=== PATIENT | female | born 1985 | race African-American/Black ===

== ENCOUNTER 2020-02-05 11:09 | Emergency (ER) | payer BC, SELFPAY ==
[2020-02-05] VITALS (9 sets, daily range): BP systolic 129–177; BP diastolic 30–119; PULSE 70–84; RESP 14–20; TEMP 36.4; O2SAT 98–100
--- NOTE | ~2020-02-05 | CT_ITS ---
EXAMINATION: CTA chest EXAM DATE: 02/05/2020 14:52 INDICATION: Chest pain radiating to back. Hypertensive. TECHNIQUE: Spiral CTA of the chest (aorta) was performed with 100 cc Omnipaque 350 intravenous contr ast injection. Images were acquired during the pulmonary arterial phase. Coronal maximum intensity projection 3D-reconstructions were created by the technologist on dedicated workstation. Axial, cor onal and sagittal reformatted images were reviewed. The dose-length product (DLP) for this examinati on was 586.43 mGy-cm. The exposure was tailored according to patient size (auto mA exposure control ), and iterative reconstruction (ASIR) was used as additional dose reduction technique. There is no prior study for comparison. FINDINGS: No central pulmonary emboli. No thoracic aortic dissection or aneurysm. The lungs are cl ear. There are no pleural or pericardial effusions. Tracheobronchial tree is patent. There is n o mediastinal, hilar or axillary lymphadenopathy. There is no pneumothorax. Heart normal in size. No evidence of coronary arterial calcification. Upper abdomen is unremarkable. There is thoraci c spondylosis without osteoblastic or osteolytic lesions identified. IMPRESSION: 1. No acute cardiopulmonary findings. Reviewed, dictated and finalized at location B.
--- NOTE | ~2020-02-05 | XR_ITS ---
EXAMINATION: XR chest 2V EXAM DATE: 02/05/2020 11:47 INDICATION: Left-sided chest pain when breathing. TECHNIQUE: Frontal and lateral projections of the chest obtained and reviewed. There is no prior estephania dy for comparison. FINDINGS: The lungs are clear. There are no pleural effusions. The cardiomediastinal silhouette is within normal limits. There is no pneumothorax suspected. The bones and soft tissues are unremarkab le. IMPRESSION: Normal chest x-ray exam. Reviewed, dictated and finalized at location B. IMPRESSION: Normal chest x-ray exam.
--- NOTE | 2020-02-05 11:13 | ECG_ITS ---
Measurements Intervals [place] Rate: 80 P: 39 DE: 136 QRS: -23 QRSD: 130 T: 13 QT: 391 QTc: 453 Interpretive Statements SINUS RHYTHM RIGHT BUNDLE BRANCH BLOCK VOLTAGE CRITERIA FOR LVH MINIMAL Q WAVES- LATERAL LEADS BASELINE ARTIFACT- I, II, III, AVR, AVF, V4-V6 ABNORMAL ECG Electronically Signed On 02-05-2020 11:24:05 CDT by Jose M Drummond D.O.
--- NOTE | 2020-02-05 11:20 | ED.CHESTPAIN ---
HPI - Chest Pain General Chief Complaint: Chest Pain Stated Complaint: CP Time Seen by Provider: 02/05/20 11:20 Source: patient Mode of arrival: ambulatory Limitations: no limitations History of Present Illness HPI narrative: A 34 y/o female presents to the ED with c/o left sided CP that radiates into her left arm and back. Pt states that the sharp CP started yesterday when she was driving home from work. The CP has been constant and is aggravated with deep breaths. Pt rates the CP at 7/10 in severity and notes that today her left arm has been intermittently throbbing. Pt reports SOB and nausea, but denies rhinorrhea, cough, bilateral leg edema, bilateral calf tenderness, and vomiting. She took Tylenol for the CP with no relief. Pt has a PMHx of HTN and takes medication for her HTN daily. She is a lifetime nonsmoker. complaint: chest pain (Left sided) Onset (ago): day(s) (1) Timing of current episode: constant Onset: during rest Pain location: left chest Pain radiation: left arm and back Pain scale (0-10): 7 Quality: sharp Exacerbating factors: inspiration Associated symptoms: nausea and dyspnea Treatment prior to arrival: other (Tylenol) Related Data Home Medications Medication Instructions Recorded Confirmed ergocalciferol (vitamin D2) 02/05/20 ferrous sulfate 02/05/20 lisinopril-hydrochlorothiazide tablet 02/05/20 sumatriptan succinate mg PO 02/05/20 Allergies Allergy/AdvReac Type Severity Reaction Status Date / Time No Known Allergies Allergy Verified 02/05/20 11:15 Review of Systems Review of Systems: All systems reviewed & are unremarkable except as noted in HPI and below ENT: Denies nasal discharge Cardiovascular: Cardiovascular: Reports chest pain (Left sided that radiates to left arm and back) and Denies leg edema (Bilateral) Respiratory: Respiratory: Denies cough and Reports dyspnea Gastrointestinal: Gastrointestinal: Reports nausea and Denies vomiting Musculoskeletal: Musculoskeletal: Denies arthralgias (Bilateral calf) [facility] Past Medical History Medical History (Updated 02/05/20 @ 15:32 by Rylee Pedroza MD) HTN (hypertension) Surgical History Surgical History (Updated 02/05/20 @ 11:32 by Amber Jackson) No pertinent past surgical history Social History Social History (Updated 02/05/20 @ 11:32 by Amber Hernandez Smoking status: Never smoker Gender identity (if verbalized by the patient): Female Exam Narrative: Exam Narrative: GENERAL: Well-appearing, well-nourished, and in no acute distress. HEAD: Normocephalic, atraumatic EYES: PERRLA and EOMI, conjunctiva clear without discharge THROAT:Mucous membranes moist, Oropharynx normal without erythema, exudate, peritonsillar swelling or fluctuance NECK: Supple, without lymphadenopathy or mass RESPIRATORY: No respiratory distress, Airway patent, Respirations non-labored, Clear to auscultation without rales, rhonchi or wheeze HEART: Regular rate and rhythm. No murmur heard. Normal peripheral pulses. ABDOMEN: Soft, nontender, nondistended, normal active bowel sounds. No masses. No rebound or guarding, No organomegaly. EXTREMITIES: No edema, normal strength with full range of motion. SKIN: Warm, dry, normal color without rash NEURO: Alert and oriented x3. CN 2-12 grossly intact. No focal deficits. PSYCH: Normal mood and affect. Course Course Emergency Course: Patient presented with left chest pain and left back pain. She was extremely hypertensive so CTa performed. CTA normal . Patient is low risk for heart score so she understands she will need to follow up . Vital Signs Vital signs: Vital Signs Temperature 97.6 F 02/05/20 11:13 Pulse Rate 72 02/05/20 11:13 Respiratory Rate 14 02/05/20 11:13 Blood Pressure 177/119 H 02/05/20 11:13 Pulse Oximetry 100 02/05/20 11:13 Temperature 97.6 F 02/05/20 14:34 Pulse Rate 70 02/05/20 14:14 Respiratory Rate 20 02/05/20 14:14 Blood Pressure 14
[2020-02-05 11:40] LABS: Basophils Percent Auto 0.5 % (0.2-1.2); Eosinophils Absolute Auto 0.1 K/mm3 (0-0.3); Eosinophils Percent Auto 1.2 % (0-4.4); Hematocrit 39.3 % (37.0-47.0); Hemoglobin 12.4 g/dL (12.0-15.0); Immature Granulocyte Absolute 0.01 K/mm3 (0.00-0.031); Immature Granulocyte Percent A 0.1 % (0-0.5); Mean Corpuscular HGB Conc 31.6 g/dl (32-36); Mean Corpuscular Hemoglobin 28.9 pg (26-34); Mean Corpuscular Volume 91.6 fl (80-100); Monocytes Absolute Auto 0.4 K/mm3 (0.1-0.6); Monocytes Percent Auto 5.1 % (2.6-8.5); Neutrophils Absolute Auto 4.9 K/mm3 (1.3-6.7); Neutrophils Percent Auto 57.1 % (45.5-73.1); Platelet Count Result 332 k/mm3 (150-375); Red Blood Count 4.29 M/mm3 (4.2-5.4); Red Cell Distribution Width 14.6 % (11.5-14.5); White Blood Count 8.6 K/mm3 (4.5-10.0)
[2020-02-05 11:49] LABS: Blood Urea Nitrogen 10 mg/dL (7-17); Calcium 9.3 mg/dL (8.4-10.2); Carbon Dioxide 25 mmol/L (22-30); Chloride 101 mmol/L (98-107); Estimated CRCL calculation 101 ml/min; Estimated Glomerular Filt Rate > 60; Glucose 94 mg/dL (65-105); Potassium 3.4 mmol/L (3.4-5.0); Sodium 137 mmol/L (137-145)
[2020-02-05] MEDS: ASPIRIN 81 MG CHEWABLE TABLET 324 MG PO (11:50)
[2020-02-05 12:01] LABS: Troponin I < 0.012 ng/mL (0.000-0.034)
[2020-02-05] MEDS: NITROGLYCERIN SL 0.4 MG TABLET SUBLINGUAL (12:04)
--- NOTE | 2020-02-05 12:12 | PC.NURSE ---
Second nitro given at this time. No change in pain level following first nitro administration
--- NOTE | 2020-02-05 12:19 | PC.NURSE ---
Third nitro given at this time.
--- NOTE | 2020-02-05 12:20 | PC.NURSE ---
3rd nitro given at this time. No change in severity of pain however patient reports pain is more intermittent at this time.
[2020-02-05 12:36] LABS: D Dimer 0.46 ug/mL (<0.48); Partial Thromboplastin Time 31.6 SECONDS (22.3-36.8); Prothrombin Time 13.1 Seconds (11.1-14.7)
[2020-02-05] MEDS: CYCLOBENZAPRINE HCL 5 MG TABLET PO (13:50)
[2020-02-05] MEDS: KETOROLAC 30 MG/ML VIAL (*BKC) IV PUSH (13:51)
[2020-02-05 14:40] LABS: Troponin I < 0.012 ng/mL (0.000-0.034)
== END 2020-02-05 15:46 | disposition home or self-care (01) ==
PROVIDERS: Emergency Provider General Practice
DX: R07.9 Chest pain, unspecified (principal); I10 Essential (primary) hypertension; I45.10 Unspecified right bundle-branch block; R94.31 Abnormal electrocardiogram [ECG] [EKG]
CPT/HCPCS: 36415; 71046; 71275; 80048; 81025; 84484; 85025; 85380; 85610; 85730; 93005; 96374; 99284; A9270; J1885; Q9967

== ENCOUNTER 2021-04-06 12:46 | Emergency (ER) | payer BC, SELFPAY ==
--- NOTE | 2021-04-06 12:48 | ECG_ITS ---
Measurements Intervals [place] Rate: 65 P: 35 NC: 150 QRS: -14 QRSD: 137 T: 2 QT: 440 QTc: 457 Interpretive Statements SINUS RHYTHM RIGHT BUNDLE BRANCH BLOCK VOLTAGE CRITERIA FOR LVH MINIMAL Q WAVES- HIGH LATERAL LEADS BASELINE ARTIFACT- V6 ABNORMAL ECG Electronically Signed On 04-06-2021 13:14:20 CDT by Jose M Drummond D.O.
[2021-04-06 12:49] VITALS: BP 149/93; PULSE 68; RESP 20; TEMP 36.4; O2SAT 100
[2021-04-06 13:29] LABS: Anion Gap 6 mmol/L (8-16); Blood Urea Nitrogen 13 mg/dL (7-17); Calcium 8.8 mg/dL (8.4-10.2); Carbon Dioxide 24 mmol/L (22-30); Chloride 106 mmol/L (98-107); Estimated CRCL calculation 114 ml/min; Estimated Glomerular Filt Rate > 60; Glucose 90 mg/dL (65-105); Potassium 3.2 mmol/L (3.4-5.0); Sodium 136 mmol/L (137-145)
--- NOTE | 2021-04-06 14:13 | ED.DIZZY ---
HPI - Dizziness General Chief Complaint: Dizziness Stated Complaint: dizzy Time Seen by Provider: 04/06/21 14:12 History of Present Illness HPI Narrative: 35 yo female w/ h/o htn presents to the ED c/o dizziness. She was waiting in line at [employer] when she suddenly felt warm and flushed. She then became very light headed and had to sit down. She also reports mild nausea during this event. On my evaluation she says that her symptoms have mostly passed, she is just feeling very tired. She reports being in her usual stated of health prior to this event. She did have a recent schedule change at work and may be having trouble adjusting. Related Data Home Medications Medication Instructions Recorded Confirmed ergocalciferol (vitamin D2) 02/05/20 ferrous sulfate 02/05/20 lisinopril-hydrochlorothiazide tablet 02/05/20 sumatriptan succinate mg PO 02/05/20 Allergies Allergy/AdvReac Type Severity Reaction Status Date / Time No Known Allergies Allergy Verified 02/05/20 11:15 Review of Systems Review of Systems: All systems reviewed & are unremarkable except as noted in HPI and below Constitutional: Constitutional: Denies fever(s) Eyes: Eyes: Reports no additional eye complaints Cardiovascular: Cardiovascular: Denies chest pain Respiratory: Respiratory: Denies dyspnea Gastrointestinal: Gastrointestinal: Denies abdominal pain, Denies diarrhea, Reports nausea and Denies vomiting Genitourinary: Genitourinary: Denies hematuria and Denies dysuria Musculoskeletal: Musculoskeletal: Denies back pain Neurologic: Reports dizziness, Denies syncope and Reports numbness PMFSH Past Medical History Medical History (Updated 04/06/21 @ 15:43 by Jake Mansfield MD) HTN (hypertension) Surgical History Surgical History (Updated 02/05/20 @ 11:32 by Amber Jackson) No pertinent past surgical history Social History Social History (Updated 02/05/20 @ 11:32 by Amber Jackson) Smoking status: Never smoker Gender identity (if verbalized by the patient): Female Exam Const: General: healthy appearing, no acute distress and alert Orientation/consciousness: patient oriented x3 HENMT: Head: normal to inspection Neck: Neck: normal visual inspection Resp: Effort & Inspection: normal respiratory effort Auscultation: clear to auscultation bilaterally, no rales, no rhonchi and no wheezes Cardio: Jugular venous distension: no JVD Rate: regular rate Rhythm: regular rhythm Heart sounds: no murmurs GI: Inspection: non-distended GI Palp: Yes Soft to palpation and No Tenderness to palpation present (GI) Skin: General skin exam: normal color Neuro: General: patient oriented x3, moves all extremities, no focal motor deficits and CN's II-XI intact bilaterally Cranial nerves: Yes Nystagmus not present Speech: normal speech Gait exam (Neuro): Normal gait present Extrem: General: normal to inspection and no edema Psych: Appearance: well kempt Affect: normal affect Course Vital Signs Vital signs: Vital Signs Temperature 36.4 C L 04/06/21 12:49 Pulse Rate 68 04/06/21 12:49 Respiratory Rate 20 04/06/21 12:49 Blood Pressure 149/93 H 04/06/21 12:49 Pulse Oximetry 100 04/06/21 12:49 Temperature 36.4 C L 04/06/21 12:49 Pulse Rate 59 L 04/06/21 16:21 Respiratory Rate 16 04/06/21 16:21 Blood Pressure 152/101 H 04/06/21 16:21 Pulse Oximetry 99 04/06/21 16:21 MDM - Dizziness MDM Narrative Medical decision making narrative: History consistent with vagal episode. Could be related to recently change in sleep schedule. EKG unchanged from previous visit. Labs unremarkable. Differential Diagnosis Differential diagnosis: Likely benign paroxysmal positional vertigo, orthostatic hypotension and other (vasovagal near syncope) Medical Records Attestation: I reviewed the patient's medical records. Lab Data Attestation: I reviewed the patient's lab results. Result diagrams: 04/06/21 15:05
--- NOTE | 2021-04-06 14:27 | PC.NURSE ---
Pt is difficult stick. SL accessed but unable to draw labs. senior quality engineer made aware.
--- NOTE | 2021-04-06 15:03 | PC.NURSE ---
phlebotomy at bedside for lab draw.
[2021-04-06 15:13] LABS: Basophils Percent Auto 0.5 % (0.2-1.2); Eosinophils Absolute Auto 0.1 K/mm3 (0-0.3); Eosinophils Percent Auto 1.4 % (0-4.4); Hematocrit 34.3 % (37.0-47.0); Hemoglobin 10.7 g/dL (12.0-15.0); Immature Granulocyte Absolute 0.02 K/mm3 (0.00-0.031); Immature Granulocyte Percent A 0.2 % (0-0.5); Lymphocytes Absolute Auto 1.73 K/mm3 (0.9-3.2); Lymphocytes Percent Auto 19.9 % (18.3-44.2); Mean Corpuscular HGB Conc 31.2 g/dl (32-36); Mean Corpuscular Volume 86.6 fl (80-100); Mean Platelet Volume 10.7 fl (7.4-10.4); Monocytes Absolute Auto 0.4 K/mm3 (0.1-0.6); Monocytes Percent Auto 4.7 % (2.6-8.5); Neutrophils Absolute Auto 6.4 K/mm3 (1.3-6.7); Neutrophils Percent Auto 73.3 % (45.5-73.1); Platelet Count Result 294 k/mm3 (150-375); Red Blood Count 3.96 M/mm3 (4.2-5.4); Red Cell Distribution Width 16.4 % (11.5-14.5); White Blood Count 8.7 K/mm3 (4.5-10.0)
[2021-04-06 15:34] VITALS: BP 150/97; PULSE 66; RESP 18; O2SAT 100
[2021-04-06] MEDS: POTASSIUM CHLORIDE 20 MEQ TABLET 40 MEQ PO (15:34)
[2021-04-06] MEDS: SODIUM CHLORIDE 0.9% IV 500 ML 999 ML IV CONT (15:34)
[2021-04-06 16:11] VITALS: BP 154/99; PULSE 57
[2021-04-06 16:12] VITALS: BP 150/100; PULSE 72
[2021-04-06 16:14] VITALS: BP 152/108; PULSE 66
[2021-04-06 16:21] VITALS: BP 152/101; PULSE 59; RESP 16; O2SAT 99
== END 2021-04-06 16:25 | disposition home or self-care (01) ==
PROVIDERS: Emergency Provider Emergency Medicine; PCP Internal Medicine
DX: R55 Syncope and collapse (principal); I10 Essential (primary) hypertension; I45.10 Unspecified right bundle-branch block; R94.31 Abnormal electrocardiogram [ECG] [EKG]
CPT/HCPCS: 36415; 80048; 81025; 85025; 93005; 96360; 99284; A9270; J7040

== ENCOUNTER 2021-04-25 10:13 | Outpatient (CLI) | payer BC, SELFPAY ==
--- NOTE | ~2021-04-25 | US_ITS ---
EXAMINATION: US pelvic complete w TV EXAM DATE: 04/25/2021 10:57 INDICATION: Menorrhagia, anemia due to menorrhagia, pelvic pain. TECHNIQUE: Pelvic transabdominal and transvaginal sonogram was performed. There are multiple graysca le and Doppler images available for interpretation. There is no prior study for comparison. FINDINGS: Uterus measures 9.3 x 6.9 x 6.8 cm, with a posterior myometrial fibroid measuring up to 3. 7 cm. Endometrial stripe measures 1.5 mm, within normal limits. There is no free pelvic fluid. Right adnexa: The ovary measures 2.9 x 1.7 x 3.1 cm and is morphologically normal. Ovarian vascular f low confirmed. Left adnexa: The ovary measures 4.9 x 2.2 x 4.0 cm and is morphologically normal. Ovarian vascular fl ow confirmed. IMPRESSION: Fibroid. Reviewed, dictated and finalized at location B. IMPRESSION: Fibroid.
== END 2021-04-25 10:14 ==
PROVIDERS: PCP Internal Medicine; Visit Provider Obstetrics & Gynecology
DX: D25.9 Leiomyoma of uterus, unspecified (principal); R10.2 Pelvic and perineal pain; N92.4 Excessive bleeding in the premenopausal period
CPT/HCPCS: 76830; 76856

== ENCOUNTER 2022-07-10 16:15 | Emergency (ER) | payer OTHER, SELFPAY ==
[2022-07-10 16:26] VITALS: BP 139/100; PULSE 68; RESP 16; TEMP 36.8; O2SAT 100
--- NOTE | 2022-07-10 16:27 | ED.HA ---
HPI - Headache General Chief Complaint: Headache Stated Complaint: Elevated BP w/ right sided headache Time Seen by Provider: 07/10/22 16:28 Source: patient, RN notes reviewed and old records reviewed Mode of arrival: ambulatory Limitations: no limitations History of Present Illness HPI Narrative: 36-year-old female presents to the [facility] with complaints of a headache and concerned over blood pressure. Denies any blurry vision or change in vision. Denies any weakness. Denies any nausea or vomiting. No chest pain or abdominal pain. Denies any shortness of breath. that her headache has been there for 4 days and has taken Tylenol. Patient reports normally she takes ibuprofen and that normally helps but has not taken any ibuprofen because of some stomach upset. Patient seen her doctor yesterday, medications refilled. Related Data Home Medications Medication Instructions Recorded Confirmed clindamycin HCl 300 mg capsule 300 mg PO DIRECTED 07/10/22 07/10/22 clindamycin phosphate 1 % topical 1 applic topical DIRECTED 07/10/22 07/10/22 gel, once daily dicyclomine 10 mg capsule 10 mg PO DIRECTED 07/10/22 07/10/22 ergocalciferol (vitamin D2) 1,250 1,250 mcg PO DAILY 07/10/22 07/10/22 mcg (50,000 unit) capsule lisinopril 20 1 tablet PO DAILY 07/10/22 07/10/22 mg-hydrochlorothiazide 12.5 mg tablet meloxicam 7.5 mg tablet 7.5 mg PO DIRECTED 07/10/22 07/10/22 pantoprazole 40 mg tablet,delayed 40 mg PO DAILY 07/10/22 07/10/22 release Allergies Allergy/AdvReac Type Severity Reaction Status Date / Time No Known Allergies Allergy Verified 07/10/22 16:18 Review of Systems Review of Systems: All systems reviewed & are unremarkable except as noted in HPI and below Constitutional: Constitutional: Reports no additional constitutional complaints, Denies chills and Denies fever(s) Eyes: Eyes: Reports no additional eye complaints ENT: Reports system reviewed and no additional complaints, except as documented Cardiovascular: Cardiovascular: Reports no additional cardiovascular complaints Respiratory: Respiratory: Reports no additional respiratory complaints Gastrointestinal: Gastrointestinal: Reports no additional gastrointestinal complaints Musculoskeletal: Musculoskeletal: Reports no additional musculoskeletal complaints Integumentary/Breasts: Skin/Breast: Reports system reviewed and no additional complaints, except as docu Neurologic: Reports as per HPI and Reports headache(s) Psychiatric: Psychiatric: Reports no additional psychiatric complaints Allergic/Immunologic: Allergic/Immunologic: Reports no additional allergic/immunologic complaints PMFSH Past Medical History Medical History HTN (hypertension) Surgical History Surgical History No pertinent past surgical history Social History Social History Smoking status: Never smoker Gender identity (if verbalized by the patient): Female Comments At the time of my signature, I reviewed and agree with the nursing past medical, surgical, social, and family history. There is no relevant family history pertinent to the patient complaint. Exam Const: General: healthy appearing, no acute distress and alert Nutritional Appearance: well nourished Orientation/consciousness: patient oriented x3 Limitations: no limitations HENMT: Head: normal to inspection Ears: external ears normal General nose exam: Normal external nose present and Normal nares present Face and sinus: normal facial exam and face symmetric Mouth: Yes Normal oral and palatal mucosa present, Yes lip normal and Yes tongue normal Throat: posterior oropharynx normal Eyes: General: appearance normal, both eyes and all related structures Conjunctivae: conjunctivae normal Pupils: Equal, round and reactive pupils pres
== END 2022-07-10 16:41 | disposition home or self-care (01) ==
PROVIDERS: Emergency Provider Nurse Practitioner; PCP Internal Medicine
DX: R51.9 Headache, unspecified (principal); I10 Essential (primary) hypertension
CPT/HCPCS: 99213; G0463